=== PATIENT | female | born 1940 | race Caucasian/White ===

== ENCOUNTER → 2018-05-19 15:30 | Outpatient (CLI) | payer MEDICARE, SELFPAY ==
--- NOTE | 2018-05-19 12:30 | HEM_PTH ---
PATIENT: JERRY SOUZA LOC: [facility] U#:[id number] AGE/SX: 84/F ROOM: RE05/19/[address]: Dr. Jez Rosenthal MD : [id number] BED: DIS: SPEC #: [id number] RECD: 05/19/18 15:16 STATUS: CHIDI VALERIO #: [id number] MARTINA: 05/19/18 12:[address]: Jez Rosenthal DEPT: SURGICAL PATHOLOGY RECD BY: Gris Johnson Tissues: HEMORRHOIDS Procedures: Surgery Specimen Level II HEADER OPERATION: Hemorrhoidectomy PRE-OP DIAGNOSIS: Hemorrhoid TISSUE SUBMITTED: Hemorrhoidal tissue MICROSCOPIC DIAGNOSIS Hemorrhoid tissue, excision: Submucosal vascular ectasia and thrombosis consistent with hemorrhoids. AM:aron 05/23/18 MICROSCOPIC DESCRIPTION Slides are reviewed. GROSS DESCRIPTION Received in fixative is one container labeled with the patient's name and designated hemorrhoid. The specimen consists of multiple irregular fragments of glistening arriaga mucosa and fragments of blood clot that in aggregate measure 5 x 4.5 x 0.3 cm. The specimen is totally submitted in two cassettes. / AM:aron 05/22/18 TC:5 CPT: 41951
[2018-05-19 12:31] VITALS: BMI 27.1
== END ==
PROVIDERS: Referring Provider Surgery; Visit Provider Surgery
DX: K64.9 Unspecified hemorrhoids (principal)
CPT/HCPCS: 88302; 88304